=== PATIENT | female | born 1995 | race Caucasian/White ===

== ENCOUNTER 2020-08-08 09:14 | Inpatient (IN) | payer BC, MEDICAID ==
[2020-08-10] MEDS ORDERED: DINOPROSTONE 10 MG VAGINAL INSERT.SR PV PRN (18:17)
[2020-08-10] MEDS ORDERED: RINGERS SOLUTION,LACTATED 1,000 ML IV PRN ×2 (18:17→18:20)
[2020-08-10] MEDS ORDERED: ACETAMINOPHEN 325 MG TABLET PO PRN (18:20)
[2020-08-10] MEDS ORDERED: ZOLPIDEM TARTRATE 5 MG TABLET PO PRN (18:20)
[2020-08-10] MEDS ORDERED: MAG HYDROX/AL HYDROX/SIMETH SUSP 30 ML UDCUP PO PRN (18:20)
[2020-08-10] MEDS ORDERED: OXYTOCIN/0.9 % SODIUM CHLORIDE 30 UNIT/500 ML RTUINJ IV PRN (18:20)
[2020-08-10 18:56] LABS: ABSOLUTE BASOPHILS # (AUTO) 0.1 10^3/uL (0.0-0.2); ABSOLUTE EOSINOPHILS # (AUTO) 0.2 10^3/uL (0.0-0.6); ABSOLUTE LYMPHOCYTES (AUTO) 1.8 10^3/uL (0.5-4.7); ABSOLUTE MONOCYTES (AUTO) 0.9 10^3/uL (0.1-1.4); ABSOLUTE NEUT (AUTO) 7.9 10^3/uL (1.7-8.2); BASOPHILS % (AUTO) 0.6 % (0-2); EOSINOPHILS % (AUTO) 1.4 % (0-6); HEMATOCRIT 39.9 % (36.0-47.0); HEMOGLOBIN 14.1 g/dL (12.0-15.5); LYMPHOCYTES % (AUTO) 16.7 % (13-45); MEAN CORPUSCULAR HEMOGLOBIN 29.8 pg (27.0-33.4); MEAN CORPUSCULAR HGB CONC 35.3 g/dL (32.0-36.0); MEAN CORPUSCULAR VOLUME 85 fl (80-97); MONOCYTES % (AUTO) 8.5 % (3-13); PLATELET COUNT 193 10^3/uL (150-450); RED BLOOD COUNT 4.71 10^6/uL (3.72-5.28); RED CELL DISTRIBUTION WIDTH 13.2 % (11.5-14.0); SEGMENTED NEUTROPHILS % (AUTO) 72.8 % (42-78); TOTAL CELLS COUNTED % (AUTO) 100 %; WHITE BLOOD COUNT 10.9 10^3/uL (4.0-10.5)
[2020-08-10 18:57] LABS: APPEARANCE,URINE CLEAR; BILIRUBIN,URINE NEGATIVE (NEGATIVE); COLOR,URINE YELLOW; GLUCOSE, URINE NEGATIVE (NEGATIVE); KETONES,URINE NEGATIVE (NEGATIVE); LEUKOCYTE ESTERASE,URINE TRACE (NEGATIVE); NITRITE,URINE NEGATIVE (NEGATIVE); PROTEIN,URINE NEGATIVE (NEGATIVE); URINE SPECIFIC GRAVITY 1.016; UROBILINOGEN,URINE NEGATIVE mg/dL (<2.0)
[2020-08-10 19:16] LABS: URINE AMPHETAMINES SCREEN NEGATIVE; URINE BARBITURATES SCREEN NEGATIVE; URINE BENZODIAZEPINES SCREEN NEGATIVE; URINE COCAINE SCREEN NEGATIVE; URINE MARIJUANA (THC) SCREEN NEGATIVE; URINE METHADONE SCREEN NEGATIVE; URINE PHENCYCLIDINE SCREEN NEGATIVE
[2020-08-10] MEDS ORDERED: DINOPROSTONE 10 MG VAGINAL INSERT.SR ONE (19:30)
--- NOTE | 2020-08-10 23:39 | Admission Physical ---
Datetime Report Generated by CPN: 08/10/2020 23:38 CURRENT ADMISSION Chief Complaint: Scheduled Induction of Labor Indication for Induction: IUGR Admit Impression : Term, Intrauterine Admit Plan: Admit to Unit; Initiate Labor Induction Protocol ALLERGIES Medication Allergies: No Medication Allergies: No Known Allergies (08/10/2020) Latex: Latex Allergies OBSTETRICAL HISTORY EDC: 08/11/2020 00:00 : 1 Para: 0 Term: 0 : 0 SAB: 0 IAB: 0 Ectopic: 0 Livin Cesareans: 0 VBACs: 0 Multiple Births: 0 Gestational Diabetes: No Rh Sensitization: No Incompetent Cervix: No CLAUDIA: No Infertility: No ART Treatment: No Uterine Anomaly: No IUGR: Yes Hx Previous C/S: No Macrosomia: No Hx Loss/Stillborn: No PIH: No Hx : No Placenta Previa/Abruption: No Depression/PP Depression: No PTL/PROM: No Post Hemorrhage: No Current Procedures: Ultrasound; NST Obstetrical History Comments: G1- Current SEE RECORDS Alcohol: No Marijuana : No Cocaine: No Other Illicit Drugs: No Cigarettes: Former Smoker. [id number] MEDICAL HISTORY Diabetes: No Blood Transfusion: No Pulmonary Disease (Asthma, TB): No Breast Disease: No Hypertension: No Signwriter Surgery: No Heart Disease: No Hosp/Surgery: No Autoimmune Disorder: No Anesthetic Complications: No Kidney Disease: No Abnormal Pap Smear: No Neuro/Epilepsy: No Psychiatric Disorders: No Other Medical Diseases: No Hepatitis/Liver Disease: No Significant Family History: No Varicosities/Phlebitis: No Trauma/Violence : No Thyroid Dysfunction: No INFECTIOUS HISTORY Gonorrhea: No Genital Herpes: No Chlamydia: No Tuberculosis: No Syphilis: No Hepatitis: No HIV/AIDS Exposure: No Rash or Viral Illness: No HPV: No PHYSICAL EXAM General: Normal HEENT: Normal Neurologic: Normal Thyroid: Normal Heart: Normal Lungs: Normal Breast: Deferred Back: Normal Abdomen: Normal Genitourinary Exam: Normal Extremities: Normal DTRs: Normal Pelvic Type: Adequate VAGINAL EXAM Dilatation: 2 Effacement: 50 Station: -2 MEMBRANES Pooling: Negative Membranes: Intact FETUS A EGA: 39.6 Monitoring: External US FHR- Baseline: 120 Variability: Moderate 6-25bpm Decelerations: None Presentation: Vertex Admit Comment: Admit for induction of labor. PLANS FOR LABOR AND DELIVERY Labor and Delivery: None Pain Management: Natural Feeding Preference: Formula Benefit of Breast Feed Discussed: Yes Circumcision: N/A INFORMED CONSENT Signature: with User ID: [email or web address]
[2020-08-11] MEDS ORDERED: EPHEDRINE SULFATE INJ 50 MG/1 ML AMPULE ONE (01:56)
[2020-08-11] MEDS ORDERED: FENTANYL/BUPIVACAINE/NS/PF 0 MCG/0 ML RTUINJ EPI ONE (01:57)
[2020-08-11] MEDS ORDERED: ROPIVACAINE HCL 0.2% INJ/PF (2 MG/ML) 20 ML SDV ONE (01:57)
[2020-08-11] MEDS ORDERED: OXYTOCIN/0.9 % SODIUM CHLORIDE 30 UNIT/500 ML RTUINJ ONE (02:09)
[2020-08-11] MEDS ORDERED: LIDOCAINE 1% INJ-PF (10 MG/ML) 30 ML SDV ONE (02:09)
[2020-08-11] MEDS ORDERED: OXYTOCIN 10 UNIT/ML VIAL ONE (02:09)
[2020-08-11] MEDS ORDERED: MISOPROSTOL 0.2 MG TABLET ONE (02:09)
[2020-08-11] MEDS ORDERED: GLYCERIN/WITCH HAZEL LEAF 1 EACH MED..WIPE TP PRN (02:50)
[2020-08-11] MEDS ORDERED: MAGNESIUM HYDROXIDE SUSP 30 ML UDCUP PO PRN (02:50)
[2020-08-11] MEDS ORDERED: ACETAMINOPHEN WITH CODEINE #3 TABLET PO PRN ×2 (02:50)
[2020-08-11] MEDS ORDERED: OXYTOCIN/0.9 % SODIUM CHLORIDE 30 UNIT/500 ML RTUINJ IV PRN (02:50)
[2020-08-11] MEDS ORDERED: PROMETHAZINE HCL 25 MG TABLET PO PRN (02:50)
[2020-08-11] MEDS ORDERED: PROMETHAZINE HCL 25 MG SUPP.RECT PR PRN (02:50)
[2020-08-11] MEDS ORDERED: ZOLPIDEM TARTRATE 5 MG TABLET PO PRN (02:50)
[2020-08-11] MEDS ORDERED: DIPH/PERTUSS(ACELL)/TETANUS VAC/PF 0.5 ML SYR (>=10YO) IM PRN (02:50)
[2020-08-11] MEDS ORDERED: BENZOCAINE/MENTHOL AEROSOL SPRAY 56 ML TOP PRN (02:50)
[2020-08-11] MEDS ORDERED: DIPHENHYDRAMINE HCL 25 MG CAPSULE PO PRN (02:50)
[2020-08-11] MEDS ORDERED: PROMETHAZINE HCL INJ 25 MG/1 ML VIAL IV PRN (02:50)
[2020-08-11] MEDS ORDERED: PSEUDOEPHEDRINE HCL 30 MG TABLET PO PRN (02:50)
[2020-08-11] MEDS ORDERED: NA PHOS,M-B/NA PHOS,DI-BA (ADULT) 133 ML ENEMA PR PRN (02:50)
[2020-08-11] MEDS ORDERED: MEASLES,MUMPS&RUBELLA VACC/PF 0.5 ML VIAL SUBCUT PRN (02:50)
[2020-08-11] MEDS ORDERED: ACETAMINOPHEN 650 MG SUPP.RECT PR PRN (02:50)
[2020-08-11] MEDS ORDERED: DIBUCAINE 1% OINTMENT 28 GM TP PRN (02:50)
--- NOTE | 2020-08-11 05:11 | Birth Certificate Data ---
Cert Data Datetime Report Generated by CPMary: 08/11/2020 05:11 CERTIFICATE DATA 47a. Care: Yes (08/10/2020 16:08:Marianne Dove RN) 47b. Date of First Visit: 01/30/2020 00:00 (08/10/2020 16:08:Marianne Dove RN) 47c. Date of Last Visit: 08/05/2020 00:00 (08/10/2020 16:08:Marianne Dove RN) 47d. Number of Visits: 10 (08/10/2020 16:08:Marianne Dove RN) 48a. Number of Prev Live Births: 0 (08/10/2020 16:08:Marianne Dove RN) 48b. Now Livin (08/10/2020 16:08:Marianne Dove RN) 48c. Live Births Now : 0 (08/10/2020 16:08:QS system process) 48e. Losses: 0 (08/10/2020 16:08:Marianne Dove RN) RISK FACTORS IN THIS 49a. Diabetes: No (08/10/2020 16:08:Marianne Dove RN) 49b. Hypertension: No (08/10/2020 16:08:Marianne Dove RN) 49c. Previous Births: 0 (08/10/2020 16:08:Marianne Dove RN) 49d. Stillborns: No (08/10/2020 16:08:Marianne Dove RN) 49d. IUGR: Yes (08/10/2020 16:08:Marianne Dove RN) 49e. Infertility Treatment: No (08/10/2020 16:08:Marianne Dove RN) 49f. Previous Cesareans: 0 (08/10/2020 16:08:Marianne Dove RN) Mother's Height 50b. Height Inches: 59 (08/10/2020 20:37:QS system process) Mother's Weight 51a. Pre- Weight (lbs): 151 (08/10/2020 16:08:Marianne Dove RN) 51b. Weight at Delivery (lbs): 185 (08/10/2020 20:37:QS system process) 52. Dt Last Normal Menses Began: 11/05/2019 00:00 (08/10/2020 16:08:Marianne Dove RN) Infections Present/Treated 53a. Gonorrhea: No (08/10/2020 16:08:Marianne Dove RN) Results this Hospital Visit : Negative (08/10/2020 16:08:Marianne Dove RN) 53b. Syphilis: No (08/10/2020 16:08:Marianne Dove RN) 53c. Chlamydia: No (08/10/2020 16:08:Marianne Dove RN) Results this Hospital Visit: Negative (08/10/2020 16:08:Marianne Dove RN) 53d. Hepatitis B: No (08/10/2020 16:08:Marianne Dove RN) Results this Hospital Visit: Negative (08/10/2020 16:08:Marianne Dove RN) 53h. Mother Tested for HBsAG: Yes (08/10/2020 16:08:Marianne Dove RN) 53i. Date Tested: 01/30/2020 00:00 (08/10/2020 16:08:NELLIE Pino 53j. Test Result: Negative (08/10/2020 16:08:Marianne Dove RN) Obstetric Procedures 54a, b, c. Obstetric Procedures: Ultrasound; NST (08/10/2020 16:08:Marianne Dove RN) Cigarette Smoking 55a. 3 Months Before Preg - Ci (08/10/2020 16:08:Marianne Dove RN) 55a. Packs: 0 (08/10/2020 16:08:Marianne Dove RN) 55b. 1st Trimester of Preg- Ci (08/10/2020 16:08:Marianne Dove RN) 55b. Packs: 0 (08/10/2020 16:08:Marianne Dove RN) 55c. 2nd Trimester of Preg- Ci (08/10/2020 16:08:Marianne Dove RN) 55c. Packs: 0 (08/10/2020 16:08:Marianne Dove RN) 55d. 3rd Trimester of Preg- Ci (08/10/2020 16:08:Marianne Dove RN) 55d. Packs: 0 (08/10/2020 16:08:Marianne Dove RN) Onset of Labor 56a. PROM >12 Hrs: 0.00 (08/10/2020 16:08:QS system process) 56b. Precipitous Labor <3 Hrs: 1 (08/10/2020 16:08:QS system process) 56c. Prolonged Labor > 20 Hrs: 1 (08/10/2020 16:08:QS system process) 57a. Induction of Labor: N/A (08/10/2020 16:08:Yanet Cook RN) 57a. Induction of Labor: Cervidil (08/10/2020 19:44:Yanet Cook RN) 57c. Non-Vertex Presentation A: Vertex (08/10/2020 16:08:Doyle Mills MD ([facility])) 57d. Steroids - Lung Mat: None (08/10/2020 16:08:Doyle Mills MD ([facility])) 57d. Steroids - Lung Mat: Not Applicable (08/10/2020 16:08:Doyle Mills MD ([facility])) 57f. Mat [place] or Temp >100.4: 98.5 (08/10/2020 16:08:Yanet Cook RN) 57g. Moderate/Heavy Meconium: Clear (08/10/2020 16:08:Yanet Cook RN) 57h. Intolerance of Labor: N/A (08/10/2020 16:08:Yanet Cook RN) : N/A (08/10/2020 16:08:Yanet Cook RN) 57i. Epidural/Spinal Anesthesia: None (08/10/2020 16:08:Yanet Cook RN) Method of Delivery 58a. Forceps - Unsuccessful A: N/A (08/10/2020 16:08:Yanet Cook RN) 58b. Vacuum - Unsuccessful A: N/A (08/10/2020 16:08:Yanet Cook RN) 58c. Presentation at 58c. Presentation at - A : Vertex (08/10/2020 16:08:Doyle Mills MD ([facility])) 58c. Presentation at - A : N/A (08/10/2020 16:08:Doyle Mills MD ([facility])) 58c. Presentation at - A : Cephalic (08/10/2020 16:08:Doyle Mills MD ([facility])) Final Route and Method of Del 58d. Baby A Route/Delivery: Vaginal (08/10/2020 16:08:Yanet Cook RN) 58e. Trial of Labor Attempted: No (08/10/2020 16:08:Yanet Cook RN) 58e. Trial of Labor Attempted A: N/A (08/10/2020 16:08:Yanet Cook RN) 58e. Trial of Labor Attempted B: N/A (08/10/2020 16:08:Yanet Cook RN) Maternal Morbidity 59b. 3rd or 4th Degree Lacs: Perineal (08/10/2020 16:08:Doyle Mills MD ([facility])) Birthweight Baby A: 3231 (08/10/2020 16:08:Diana Soto RN) 60a. Pounds : 7 (08/10/2020 16:08:QS system process) 60b. Ounces: 2 (08/10/2020 16:08:QS system process) 61. GA at Delivery Baby A: 40.0 (08/10/2020 16:08:Yanet Cook RN) : Full Term- 39- 40.6 Weeks (08/10/2020 16:08:QS system process) 62a. 5 Minute Baby A: 9 (08/10/2020 16:08:QS system process)
--- NOTE | 2020-08-11 05:13 | Delivery Summary ---
Del Sum A-C Datetime Report Generated by CPN: 08/11/2020 05:12 DELIVERY PERSONNEL DELIVERY PERSONNEL: [id number] Delivery Doctor:: Doyle Mills MD Labor and Delivery Nurse:: Yanet Cook RNindustrial cleaner Nurse:: Christa Somers RN Nursery Nurse:: Hailey Farley RN Men'S Golf Coach/ENGRAVER WOOD: Tashia Alvarez, ST MATERNAL INFORMATION Delivery Anesthesia: None Medications After Delivery: Pitocin 30 Units in 500ml NS/D5W Estimated Blood Loss (ml): 250 Delivery QBL: 150 Maternal Complications: None LABOR SUMMARY EDC: 08/11/2020 00:00 No. Babies in Womb: 1 Attempted: No Labor Anesthesia: None LABOR INFORMATION Reason for Induction: Intrauterine Growth Retardation Onset of Labor: 08/11/2020 00:54 Complete Dilatation: 08/11/2020 02:01 Cervical Ripening Agents: Cervidil Oxytocin: N/A Group B Beta Strep: Negative Steroids Given: None Reason Steroids Not Administered: Not Applicable MEMBRANES Membranes Rupture Method: Spontaneous Rupture of Membranes: 08/11/2020 02:32 Length of Rupture (hr): 0.00 Amniotic Fluid Color: Clear Amniotic Fluid Amount: Small Amniotic Fluid Odor: None STAGES OF LABOR Stage 1 hr: 1 Stage 1 min: 7 Stage 2 hr: 0 Stage 2 min: 31 Stage 3 hr: 0 Stage 3 min: 5 Total Time in Labor hr: 1 Total Time in Labor min: 43 VAGINAL DELIVERY Episiotomy: None Laceration #1: Perineal Laceration Extension #1: First Degree Laceration #2: None Laceration Extension #2: N/A Laceration #3: None Laceration Extension #3: N/A Laceration Repair: Yes Laceration Repair Note: Repair with one 3-0 chromic suture to bring the skin edges together. Sponge Count Correct: Vaginal Sweep Performed Sharps Count Correct: Yes CSECTION DELIVERY Primary Indication: N/A Secondary Indication: N/A CSection Incidence: N/A Labor: N/A Elective: N/A CSection Incision: N/A BABY A INFORMATION Infant Delivery Date/Time: 08/11/2020 02:32 Method of Delivery: Vaginal Nurse Controlled Delivery: No Born in Route : No : N/A Forceps: N/A Vacuum Extraction: N/A Shoulder Dystocia : No PRESENTATION/POSITION BABY A Presentation: Cephalic Cephalic Presentation: Vertex Vertex Position: Right Occipital Anterior Breech Presentation: N/A PLACENTA INFORMATION BABY A Placenta Delivery Time : 08/11/2020 02:37 Placenta Method of Delivery: Spontaneous Placenta Status: Delivered SCORES BABY A Heart Rate 1 min: >100 bpm Resp Effort 1 min: Good Cry Reflex Irritability 1 min: Cough or Sneeze or Pulls Away Muscle Tone 1 min: Active Motion Color 1 min: Blue/Pale Resuscitation Effort 1 min: Tactile Stimulation SCORE 1 MIN: 8 Heart Rate 5 min: >100 bpm Resp Effort 5 min: Good Cry Reflex Irritability 5 min: Cough or Sneeze or Pulls Away Muscle Tone 5 min: Active Motion Color 5 min: Body V[place], Extremities Blue SCORE 5 MIN: 9 INFANT INFORMATION BABY A Gestational Age at Delivery: 40.0 Gestational Status: Full Term- 39- 40.6 Weeks Infant Outcome : Liveborn Condition : Stable Sex: Female IDENTIFICATION BABY A Infant Verification Date/Time: 08/11/2020 02:47 ID Band Number: [id number] Mother's Name Verified: Yes Infant RN Verifying : Toño Irving RN/ A. Betoman RN WEIGHT/LENGTH BABY A Birthweight (gm): 3231 Infant Weight (lb): 7 Weight (oz): 2 Infant Length (in): 19.50 Infant Length (cm): 49.53 CORD INFORMATION BABY A No. Cord Vessels: 3 Nuchal Cord : N/A Cord Blood Taken: Yes-For Storage (Mom's Blood type +) Infant Suction: Mouth; Nose ASSESSMENT BABY A Complications: None Physical Findings at Delivery: Within Normal Limits Skin to Skin: Yes Transferred To: Remains with Mother BABY B INFORMATION : N/A SIGNATURES Signature: Electronically signed by MD Bien[facility]ido [facility]) on 08/11/2020 at 02:47 with User ID: Michael
[2020-08-11] MEDS: IBUPROFEN 800 MG TABLET PO SCH ×3 (06:03→21:21)
[2020-08-11] MEDS: FERROUS SULFATE 325 MG TABLET PO SCH ×2 (09:22→17:24)
[2020-08-11] MEDS: SENNOSIDES/DOCUSATE 8.6-50 MG 1 EACH TABLET PO SCH (09:22)
[2020-08-11] MEDS: FAMOTIDINE 20 MG TABLET PO SCH ×2 (09:22→21:21)
[2020-08-11] MEDS: DOCUSATE SODIUM 100 MG CAPSULE PO SCH ×2 (09:22→17:24)
[2020-08-11] MEDS: PRENATAL VITAMIN W DHA CAPSULE PO SCH (09:22)
--- NOTE | 2020-08-11 09:56 | PDOC PROGRESS REPORT ---
Subjective-OB Progress Note for:: 08/11/20 Subjective: Doing well, holding baby, went in to labor on cervidil, hsb at bs, voiding, bottle feeding Physical Exam (OB) Vital Signs: Temp Pulse Resp BP Pulse Ox 98.6 F 98 17 120/55 L 99 08/11/20 07:30 08/11/20 07:30 08/11/20 07:30 08/11/20 07:30 08/11/20 07:30 Intake & Output 08/10/20 08/11/20 08/12/20 06:59 06:59 06:59 Intake Total 320 Output Total 201 Balance 119 Weight 83.6 kg - PIH/Pre-Eclampsia DTR's: 1 + Clonus: Negative Headache: Absent Epigastric Pain: No Visual Changes: No - Maternal Morbidity 59. Maternal Morbidity (serious complications experinced by the mother associated with labor and delivery: None of the above - Lochia Lochia Amount: Scant < 10 ml Lochia Color: Rubra/Red - Abdomen Description: Soft Hernia Present: No Fundal Description: Firm, Midline Fundal Height: u/u - u/2 Objective-Diagnostic Laboratory: 08/10/20 18:39 08/10/20 08/10/20 08/10/20 18:38 18:39 18:39 WBC 10.9 H RBC 4.71 Hgb 14.1 Hct 39.9 MCV 85 MCH 29.8 MCHC 35.3 RDW 13.2 Plt Count 193 Seg Neutrophils % 72.8 Urine Color YELLOW Urine Appearance CLEAR Urine pH 6.0 Ur Specific [place] 1.016 Urine Protein NEGATIVE Urine Glucose (UA) NEGATIVE Urine Ketones NEGATIVE Urine Blood SMALL H Urine Nitrite NEGATIVE Ur Leukocyte Esterase TRACE H Blood Type A POSITIVE Antibody Screen NEGATIVE Assessment and Plan(PN) - Assessment and Plan (1) Encounter for induction of labor Is this a current diagnosis for this admission?: Yes (2) Vaginal delivery Is this a current diagnosis for this admission?: Yes - Time Spent with Patient Time with patient: Less than 15 minutes Medications reviewed and adjusted accordingly: Yes - Disposition Anticipated Discharge Disposition: Home, Self Care Anticipated Discharge Timeframe: within 24 hours
[2020-08-12] MEDS: IBUPROFEN 800 MG TABLET PO SCH ×3 (06:26→21:09)
[2020-08-12 08:21] LABS: HEMATOCRIT 32.6 % (36.0-47.0); MEAN CORPUSCULAR HEMOGLOBIN 30.3 pg (27.0-33.4); MEAN CORPUSCULAR VOLUME 86 fl (80-97); PLATELET COUNT 148 10^3/uL (150-450); RED BLOOD COUNT 3.77 10^6/uL (3.72-5.28); RED CELL DISTRIBUTION WIDTH 13.7 % (11.5-14.0); WHITE BLOOD COUNT 9.4 10^3/uL (4.0-10.5)
[2020-08-12 08:37] LABS: HEMOGLOBIN 11.4 g/dL (12.0-15.5)
[2020-08-12] MEDS: PRENATAL VITAMIN W DHA CAPSULE PO SCH (09:35)
[2020-08-12] MEDS: FAMOTIDINE 20 MG TABLET PO SCH ×2 (09:35→21:10)
[2020-08-12] MEDS: SENNOSIDES/DOCUSATE 8.6-50 MG 1 EACH TABLET PO SCH (09:35)
[2020-08-12] MEDS: DOCUSATE SODIUM 100 MG CAPSULE PO SCH ×2 (09:35→17:35)
[2020-08-12] MEDS: FERROUS SULFATE 325 MG TABLET PO SCH ×2 (09:35→17:35)
--- NOTE | 2020-08-12 10:03 | PDOC PROGRESS REPORT ---
Subjective-OB Progress Note for:: 08/12/20 - PP Day #1, doing well, UOB, voiding, A+, Rubella immune, bottlefeeding Physical Exam (OB) Vital Signs: Temp Pulse Resp BP Pulse Ox 97.8 F 71 16 104/50 L 100 08/12/20 09:36 08/12/20 07:59 08/12/20 07:59 08/12/20 07:59 08/12/20 07:59 Intake & Output 08/11/20 08/12/20 08/13/20 06:59 06:59 06:59 Intake Total 2320 Output Total 201 Balance 2119 Weight 83.6 kg - General General Appearance: Appears well, Alert - PIH/Pre-Eclampsia DTR's: 1 + Clonus: Negative Headache: Absent Epigastric Pain: No Visual Changes: No - Maternal Morbidity 59. Maternal Morbidity (serious complications experinced by the mother associated with labor and delivery: None of the above - Lochia Lochia Amount: Small 10-25 ml Lochia Color: Rubra/Red - Abdomen Description: Soft, Round Hernia Present: No Fundal Description: Firm, Midline Fundal Height: u/u - u/2 - Respiratory Respiratory Status: No respiratory distress - Abdominal Distension: No distension Tenderness: Nontender - Genitourinary Genitourinary Note: voiding - Extremities Upper extremity: Normal inspection Lower extremities: Normal inspection - Neurological Cognition: Normal Orientation: AAOx4 - Psychological Associated symptoms: Normal affect, Normal mood - Skin Skin Temperature: Warm Skin Moisture: Dry Objective-Diagnostic Laboratory: 08/12/20 07:08 08/12/20 07:08 WBC 9.4 RBC 3.77 Hgb 11.4 L D Hct 32.6 L MCV 86 MCH 30.3 MCHC 35.0 RDW 13.7 Plt Count 148 L Assessment and Plan(PN) - Assessment and Plan (1) Encounter for induction of labor Is this a current diagnosis for this admission?: Yes (2) Vaginal delivery Is this a current diagnosis for this admission?: Yes - Time Spent with Patient Time with patient: Less than 15 minutes Medications reviewed and adjusted accordingly: Yes - Disposition Anticipated Discharge Disposition: Home, Self Care Anticipated Discharge Timeframe: within 24 hours
[2020-08-13] MEDS: IBUPROFEN 800 MG TABLET PO SCH ×2 (05:48→13:51)
[2020-08-13] MEDS: FERROUS SULFATE 325 MG TABLET PO SCH (10:26)
[2020-08-13] MEDS: PRENATAL VITAMIN W DHA CAPSULE PO SCH (10:26)
[2020-08-13] MEDS: DOCUSATE SODIUM 100 MG CAPSULE PO SCH (10:26)
[2020-08-13] MEDS: SENNOSIDES/DOCUSATE 8.6-50 MG 1 EACH TABLET PO SCH (10:26)
[2020-08-13] MEDS: FAMOTIDINE 20 MG TABLET PO SCH (10:26)
[2020-08-13 12:02] LABS: HEMATOCRIT 35.8 % (36.0-47.0); HEMOGLOBIN 12.2 g/dL (12.0-15.5); MEAN CORPUSCULAR HEMOGLOBIN 29.5 pg (27.0-33.4); MEAN CORPUSCULAR HGB CONC 34.1 g/dL (32.0-36.0); MEAN CORPUSCULAR VOLUME 87 fl (80-97); PLATELET COUNT 176 10^3/uL (150-450); RED BLOOD COUNT 4.13 10^6/uL (3.72-5.28); RED CELL DISTRIBUTION WIDTH 13.3 % (11.5-14.0); WHITE BLOOD COUNT 10.2 10^3/uL (4.0-10.5)
[2020-08-13 12:08] VITALS: BP 117/62
--- NOTE | 2020-08-13 14:56 | PDOC DISCHARGE SUMMARY ---
Impression - Admit/DC Date/PCP Admission Date/Primary Care Provider: 08/10/20 18:14 JANA GARSIA MD Discharge Date: 08/13/20 - Discharge Diagnosis (1) Encounter for induction of labor Is this a current diagnosis for this admission?: Yes (2) Perineal laceration during delivery Is this a current diagnosis for this admission?: Yes (3) Vaginal delivery Is this a current diagnosis for this admission?: Yes - Assessment Summary: 25yo s/p ppd 2 stable and ready for discharge. Understands warning s/s as well as reasons to rtc/[facility] - Additional Information Resuscitation Status: Full Code Discharge Diet: As Tolerated, Regular Discharge Activity: Activity As Tolerated, Balance Activity w/Rest, No Lifting Over 10 Pounds, No Lifting/Push/Pulling, Pelvic Rest, No tub bath Referrals: JANA GARSIA MD [Primary Care Provider] - Prescriptions: Ibuprofen [Motrin 800 mg Tablet] 800 mg PO Q8HP PRN #20 tablet PRN Reason: For Pain Scale 1-3 Home Medications: Prenat 115/Iron Fum/Folic/Dss [ 19 Tablet] 1 each PO DAILY 08/10/20 Ibuprofen [Motrin 800 mg Tablet] 800 mg PO Q8HP PRN #20 tablet 08/13/20 Hospital Course 59. Maternal Morbidity (serious complications experinced by the mother associated with labor and delivery: None of the above Results Laboratory Results: WBC 10.2 10^3/uL (4.0-10.5) 08/13/20 11:48 RBC 4.13 10^6/uL (3.72-5.28) 08/13/20 11:48 Hgb 12.2 g/dL (12.0-15.5) 08/13/20 11:48 Hct 35.8 % (36.0-47.0) L 08/13/20 11:48 MCV 87 fl (80-97) 08/13/20 11:48 MCH 29.5 pg (27.0-33.4) 08/13/20 11:48 MCHC 34.1 g/dL (32.0-36.0) 08/13/20 11:48 RDW 13.3 % (11.5-14.0) 08/13/20 11:48 Plt Count 176 10^3/uL (150-450) 08/13/20 11:48 Lymph % (Auto) 16.7 % (13-45) 08/10/20 18:39 [place] % (Auto) 8.5 % (3-13) 08/10/20 18:39 Eos % (Auto) 1.4 % (0-6) 08/10/20 18:39 Baso % (Auto) 0.6 % (0-2) 08/10/20 18:39 Absolute Neuts (auto) 7.9 10^3/uL (1.7-8.2) 08/10/20 18:39 Absolute Lymphs (auto) 1.8 10^3/uL (0.5-4.7) 08/10/20 18:39 Absolute Monos (auto) 0.9 10^3/uL (0.1-1.4) 08/10/20 18:39 Absolute Eos (auto) 0.2 10^3/uL (0.0-0.6) 08/10/20 18:39 Absolute Basos (auto) 0.1 10^3/uL (0.0-0.2) 08/10/20 18:39 Seg Neutrophils % 72.8 % (42-78) 08/10/20 18:39 Urine Color YELLOW 08/10/20 18:38 Urine Appearance CLEAR 08/10/20 18:38 Urine pH 6.0 (5.0-9.0) 08/10/20 18:38 Ur Specific [place] 1.016 08/10/20 18:38 Urine Protein NEGATIVE mg/dL (NEGATIVE) 08/10/20 18:38 Urine Glucose (UA) NEGATIVE mg/dL (NEGATIVE) 08/10/20 18:38 Urine Ketones NEGATIVE mg/dL (NEGATIVE) 08/10/20 18:38 Urine Blood SMALL (NEGATIVE) H 08/10/20 18:38 Urine Nitrite NEGATIVE (NEGATIVE) 08/10/20 18:38 Urine Bilirubin NEGATIVE (NEGATIVE) 08/10/20 18:38 Urine Urobilinogen NEGATIVE mg/dL (<2.0) 08/10/20 18:38 Ur Leukocyte Esterase TRACE (NEGATIVE) H 08/10/20 18:38 Urine Ascorbic Acid 20 (NEGATIVE) H 08/10/20 18:38 Urine Opiates Screen NEGATIVE 08/10/20 18:38 Urine Methadone Screen NEGATIVE 08/10/20 18:38 Ur Barbiturates Screen NEGATIVE 08/10/20 18:38 Ur Phencyclidine Scrn NEGATIVE 08/10/20 18:38 Ur Amphetamines Screen NEGATIVE 08/10/20 18:38 U Benzodiazepines Scrn NEGATIVE 08/10/20 18:38 Urine Cocaine Screen NEGATIVE 08/10/20 18:38 U Marijuana (THC) Screen NEGATIVE 08/10/20 18:38 RPR NONREACTIVE (NONREACTIVE) 08/10/20 18:39 Blood Type A POSITIVE 08/10/20 18:39 Antibody Screen NEGATIVE 08/10/20 18:39
== END 2020-08-13 15:10 | disposition home or self-care (01) | DRG 807 ==
LOC: LR 08-10 18:14 → 2S 08-11 05:28
PROVIDERS: ADMIT Obstetrics & Gynecology; ATTEND Obstetrics & Gynecology
PROC: 10E0XZZ Delivery of Products of Conception, External Approach (ICD-10-PCS; principal; 2020-08-11)
PROC: 0HQ9XZZ Repair Perineum Skin, External Approach (ICD-10-PCS; 2020-08-11)
DX: O36.5930 Maternal care for other known or suspected poor fetal growth, third trimester, not applicable or unspecified (principal); Z37.0 Single live birth; O70.0 First degree perineal laceration during delivery; O99.334 Smoking (tobacco) complicating childbirth; F17.211 Nicotine dependence, cigarettes, in remission; Z3A.39 39 weeks gestation of pregnancy
CPT/HCPCS: 36415; 80307; 81005; 85025; 85027; 86592; 86850; 86900; 86901; J2590; J2795; J3010; J3490